=== PATIENT | female | born 1970 | race Caucasian/White ===

== ENCOUNTER → 2018-03-13 17:13 | Outpatient (CLI) | payer OTHER, SELFPAY ==
[2018-03-30 11:22] LABS: HPV Reflexed? NOT INDICATED
== END ==
PROVIDERS: Family Provider Internal Medicine; PCP Internal Medicine; Referring Provider Obstetrics & Gynecology; Visit Provider Obstetrics & Gynecology
DX: Z12.4 Encounter for screening for malignant neoplasm of cervix (principal)
CPT/HCPCS: 88175; G0145

== ENCOUNTER → 2018-03-16 10:28 | Outpatient (CLI) | payer OTHER, SELFPAY ==
--- NOTE | 2018-03-16 10:32 | BI_ITS ---
MAMMOGRAPHY - BILATERAL SCREENING REASON FOR EXAM: Female, 47 years old. Routine annual screening examination. PERTINENT HISTORY: Grandmother with breast cancer. TECHNIQUE: Digital bilateral breast amy (3D mammographic acquisition) in the CC and MLO projections. 2-D mediolateral oblique (MLO) and craniocaudad (CC) views of both breasts were obtained. CAD: Full Field Digital Mammography with Computer Added Detection was performed. COMPARISON: Comparison is made with prior study dated March 07, 2017 and August 11, 2015. FINDINGS: Breast Composition: The breasts are heterogeneously dense, which may obscure small masses. There are no dominant masses or suspicious calcifications. Once again, there is a 1.2 cm x 1 cm well-defined nodule in the upper lateral aspect of the right breast. This is unchanged. This was demonstrated to be a cyst on prior sonogram dated June 08, 2013. No other significant abnormalities are identified. There has been no significant change since the prior study. BI/SCREENING MAMM (CAD), BILAT IMPRESSION: Stable bilateral screening mammogram. Yearly follow-up mammogram recommended. (A) ASSESSMENT CATEGORY: BIRADS Category 2: Benign. A letter regarding these results will be sent to the patient by the facility within 30 days. Approximately 10% of breast cancers are not detected by mammography. A normal mammogram should not delay biopsy of a clinically suspicious abnormality. [id number] Electronically Signed: Luiz Skinner MD at 13:56 EST Tel [phone], Service support ,
== END ==
PROVIDERS: Family Provider Internal Medicine; PCP Internal Medicine; Visit Provider Obstetrics & Gynecology
DX: Z12.31 Encounter for screening mammogram for malignant neoplasm of breast (principal)
CPT/HCPCS: 77063; 77067

== ENCOUNTER → 2018-05-01 15:45 | Outpatient (CLI) | payer OTHER, SELFPAY ==
--- NOTE | 2018-05-01 11:30 | COLBX_PTH ---
PATIENT: KM SEBASTIAN LOC: [facility] U#:[id number] AGE/SX: 54/F ROOM: RE05/01/[address]: Dr. Cedrick Olivarez MD : 1970 BED: DIS: SPEC #: [id number] RECD: 05/01/18 15:31 STATUS: BOLIVAR GWENDOLYN #: [id number] APOLINAR: 05/01/18 11:[address]: Cedrick Olivarez DEPT: SURGICAL PATHOLOGY RECD BY: Oscar Wolf ENTERED: 05/04/18 08:03 SP TYPE: COLON BX OT DR: Dr. Lady Brenner, [facility] Tissues: COLON BIOPSY Procedures: Surgery Specimen Level IV HEADER OPERATION: Colonoscopy with biopsy PRE-OP DIAGNOSIS: Chronic diarrhea TISSUE SUBMITTED: Right and left colon biopsy, rule out microscopic colitis MICROSCOPIC DIAGNOSIS Right and left colon, biopsy: Fragments of colonic mucosa, no pathologic diagnosis. SJ:della 2/19/19 MICROSCOPIC DESCRIPTION Slides are reviewed. GROSS DESCRIPTION Received in fixative is one container labeled with the patient's name and designated right and left colon. The specimen consists of multiple irregular fragments of light milner soft tissue that in aggregate measure 2 x 0.5 x 0.1 cm. The specimen is totally submitted in one cassette. / SJ:rg 05/04/18 TC:4 CPT: 13779
== END ==
PROVIDERS: Family Provider Internal Medicine; PCP Internal Medicine; Referring Provider Internal Medicine Gastroenterology; Visit Provider Internal Medicine Gastroenterology
DX: R19.7 Diarrhea, unspecified (principal)
CPT/HCPCS: 88305

== ENCOUNTER 2019-04-26 09:09 | Emergency (ER) | payer OTHER, SELFPAY ==
[2019-04-26 09:10] VITALS: BP 200/110; PULSE 86; RESP 17; TEMP 36.4; O2SAT 100; BMI 35.0
--- NOTE | 2019-04-26 09:38 | CT_ITS ---
STUDY: CT ABDOMEN AND PELVIS WITH CONTRAST REASON FOR EXAM: Female, 48 years old. ABD PAIN/VOMITING RADIATION DOSAGE (If Supplied By Facility): CTDIvol = ( 15.85 ) mGy, DLP = ( 1118.63 ) mGycm TECHNIQUE: Transaxial images were obtained from the dome of the diaphragm to the symphysis pubis without oral contrast. Oral and amp; IV Gastrografin and amp; 100mL Isovue-300 was administered. Sagittal and coronal images were reconstructed. Individualized dose optimization techniques were used for this CT. COMPARISON: None. FINDINGS: The visualized lung bases are unremarkable. The visualized portions of the heart are within normal limits. There is decreased attenuation of the liver consistent with steatosis. The patient is status post cholecystectomy. Normal spleen. Normal pancreas. Normal bilateral adrenal glands. Normal right kidney. Normal left kidney. There is a small hiatal hernia. Normal small intestine. There are scattered colonic diverticula consistent with diverticulosis. The appendix is visualized and appears normal. Normal abdominal aorta. Normal inferior vena cava. There is borderline retroperitoneal lymphadenopathy with enlarged nodes no greater than 10mm in the short axis diameter. Normal urinary bladder. There is a 3.1 cm x 2.3 cm left ovarian cyst. Small follicles are seen in the right ovary. Normal abdominal wall. Normal osseous structures. CT/Abdomen/Pelvis WITH Contrast IMPRESSION: Left ovarian cyst. Diffuse fatty infiltration of the liver. Electronically Signed: Luiz Skinner, at 12:42 EST , Service support ,
--- NOTE | 2019-04-26 09:40 | ED.DCSUM_ITS ---
- ER Visit Summary Date of Service: 04/26/19 Chief Complaint: Vomiting History of Present Illness: The patient is a 48 F presenting with vomiting. She states this started 1.5 hours prior to arrival. She states she has vomited several times. She denies blood in her emesis. Denies diarrhea or constipation . She has diffuse abdominal pain worst in the left lower quadrant. She denies fever. Denies chest pain or shortness of breath. Denies bad food exposure, recent antibiotics, or travel. Denies sick contacts. Physical Examination: Vitals are stable. Patient is afebrile. Alert no acute distress. HEENT exam is unremarkable. Neck is supple. Lungs are clear and equal bilaterally. Heart is regular rate and rhythm. Abdomen is soft left lower quadrant tenderness with no guarding or rebound Extremities are unremarkable. Skin is warm and dry. Remainder of exam is unremarkable. Emergency Department Course and Treatment: Patient was given IV fluids, morphine, Zofran. CBC, chemistries unremarkable. ALT 71, lipase 135. Patient continues to be nauseated and was given Phenergan IV. She complains of worsening pain and was given Dilaudid IV. CT abdomen pelvis was obtained and shows Left ovarian cyst. Diffuse fatty infiltration of the liver. Pelvic ultrasound shows 3.1 cm x 2.65 x 1.9 cm left ovarian cyst. Flow is seen. On reevaluation, patient is resting comfortably. She is feeling improved. She is discharged with prescription for short course of [place] and Zofran. 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 Advised return to ED for worsening complaints. Disposition: Discharge home Impression: Left ovarian cyst This note was generated with B[employer]ul dictation software. It may contain incorrect words, spelling, and punctuation that were not noted in review of the chart prior to signing ED Disposition - Plan for ED Patient: Instructions: Ovarian Cyst Prescriptions: Hydrocodone Bitart/Apap 5-325 [[place] 5MG-325MG] 1 tab PO Q6H PRN PRN 3 Days #10 tab PRN Reason: Pain Prescription Printed Ondansetron [Zofran Odt] 4 mg PO Q8H PRN PRN #10 tab PRN Reason: Nausea Prescription Printed Referrals: Christina Locke MD [STAFF PHYSICIAN] - Lady Brenner DO [Primary Care Provider] -
[2019-04-26 09:45] LABS: Absolute Lymphocyte Count 2.53 X10^3/uL (0.83-4.51); Absolute Neutrophil Count 7.2 X10^3/uL (2.0-7.7); Basophil# 0.04 X10^3/uL; Basophil% 0.4 % (0-1); Eosinophil# 0.06 X10^3/uL; Eosinophils% 0.6 % (0-5); Hematocrit 43.4 % (37-47); Hemoglobin 14.4 g/dL (12.0-15.0); Lymphocyte # 2.53 X10^3/ul (4.0); Mean Corp Hgb Conc 33.2 g/dL (32-36); Mean Corpuscular Hgb 30.3 pg (27.0-32.0); Mean Corpuscular Volume 91.2 fL (81-99); Monocyte# 0.62 X10^3/uL; Monocyte% 5.9 % (0-10); NRBC Flagged by Analyzer 0 % (0-5); Neutrophil # 7.23 X10^3/uL (2.7-7.7); Neutrophil % 68.6 % (47-70); Platelet Count 271 K/mm3 (150-450); RBC Distribution Width CV 13.2 % (11.6-14.6); RBC Distribution Width SD 44.2 fl (35.1-43.9); Red Blood Count 4.76 M/mm3 (4.2-5.4); White Blood Count 10.5 K/mm3 (4.4-11.0)
[2019-04-26] MEDS: Ondansetron 4 MG/2 ML Vial IV (09:48)
[2019-04-26] MEDS: 0.9% Normal Saline 1,000 ML 1000 ML IV (09:48)
[2019-04-26] MEDS: Morphine 4 MG/ML Syringe IV (09:48)
[2019-04-26 10:02] LABS: ALB/GLOB Ratio 0.9 RATIO (0.9-2.4); AST(SGOT) 26 U/L (15-37); Alanine Aminotransfer ALT/SGPT 71 U/L (13-56); Albumin, Serum 4.1 g/dL (3.2-5.0); Alkaline Phosphatase 92 U/L (45-117); Anion Gap 7 (5-15); BUN 14 mg/dL (7-18); BUN/Creat Ratio 16.9 RATIO (10-20); Calcium,Total 9.8 mg/dL (8.5-10.1); Chloride 103 mmol/L (98-107); Creatinine, Serum 0.83 mg/dL (0.55-1.02); EST Glomerular Filtration Rate 78 mL/min (>60); Est Glom Filt Rate - Afr Amer 94 mL/min (>60); Estimated Creatinine Clearance 68.57 ml/min; Globulin 4.4 g/dL (2.2-4.2); Glucose 136 mg/dL (74-106); Lipase 135 U/L (73-393); Potassium 3.9 mmol/L (3.5-5.1); Protein, Total 8.5 g/dL (6.4-8.2); Sodium Level 134 mmol/L (136-145)
[2019-04-26] MEDS: proMETHazine 25 MG/ML Syringe 6.25 MG IV (10:09)
[2019-04-26 10:40] LABS: Mucous, Urine 0 SEEN /hpf (<or=2+); Red Blood Cells-Urine 0 SEEN /hpf (0-5); White Blood Cells 0 SEEN /hpf (0-5)
[2019-04-26 10:44] LABS: Color, Urine Yellow (Yellow); Glucose, Dipstick Normal (Normal); Ketone-Dipstick Negative (Negative); Leukocyte Esterase-Dipstick Negative /ul (Negative); Nitrite-Dipstick Negative (Negative); Occult Blood-Urine Negative /ul (Negative); Protein-Dipstick Negative (Negative); Specific Gravity, Urine 1.015 (1.002-1.030); Urine Bilirubin Dipstick Negative (Negative); Urine Clarity Sl. Cloudy (Clear); Urine Urobilinogen Normal (Normal)
[2019-04-26 10:50] LABS: Bacteria 1+ /hpf (None Seen); Squamous Epithelial Cells - UA 0-5 SEEN /hpf (5-10)
--- NOTE | 2019-04-26 11:06 | ED.RN ---
PATIENT CALLS OUT COMPLAINING OF WORSENING PAIN, DR. SULLIVAN MADE AWARE.
[2019-04-26] MEDS: HYDROmorphone 1 MG/ML Syringe IV (11:18)
--- NOTE | 2019-04-26 12:57 | US_ITS ---
STUDY: ULTRASOUND OF THE FEMALE PELVIS - COMPLETE REASON FOR EXAM: Female, 48 years old. PELVIC PAIN MOSTLY LEFT SIDED X 1 DAY -- PERIMENOPAUSAL LMP: TECHNIQUE: Transvaginal TECHNICAL QUALITY: Adequate. COMPARISON: Comparison is made with prior CT scan done earlier in the day. FINDINGS: The uterus is anteverted and is in a midline position. The uterus measures 8.4 cm x 5.8 cm x 4.2 cm. Normal uterine cervix. The endometrium measures 5.0 mm in thickness, and is hyperechoic. There is no demonstrated endometrial mass. There is heterogeneous appearance of the myometrium although no focal fibroid is seen. I.U.D. - The patient does not have an I.U.D. The right ovary is visualized. The right ovary measures 2.5 cm x 2.2 cm x 1.7 cm. There is no right ovarian cyst or ovarian mass. There is no visualized right adnexal mass or complex lesion. There is normal arterial and normal venous vascularity. The left ovary is visualized. The left ovary measures 3.6 cm x 3.4 cm x 3.2 cm. There is a 3.1 cm x 2.6 x 1.9 cm cyst. There is no visualized left adnexal mass or complex lesion. There is normal arterial and normal venous vascularity. There is no fluid in the cul-de-sac. Polycystic ovary disease: No. US/Transvaginal Non- IMPRESSION: 3.1 cm x 2.65 x 1.9 cm left ovarian cyst. Flow is seen. Electronically Signed: Luiz Skinner, at 14:30 EST , Service support ,
[2019-04-26 14:51] VITALS: BP 118/67; PULSE 82; RESP 17; O2SAT 94
--- NOTE | 2019-04-26 14:56 | DCINST.ED_ITS ---
ED Disposition - Plan for ED Patient: Instructions: Ovarian Cyst Prescriptions: Hydrocodone Bitart/Apap 5-325 [[place] 5MG-325MG] 1 tablet PO Q6H PRN PRN 3 Days #10 tablet PRN Reason: Pain Ondansetron [Zofran Odt] 4 mg PO Q8H PRN PRN #10 tablet PRN Reason: Nausea Referrals: Lady Brenner DO [Primary Care Provider] - Christina Locke MD [STAFF PHYSICIAN] -
[2019-04-26 15:34] VITALS: BP 108/64; PULSE 75; RESP 16; O2SAT 97
== END 2019-04-26 15:50 | disposition home or self-care (01) ==
LOC: ED 10:17
PROVIDERS: Emergency Provider Emergency Medicine; PCP Internal Medicine
DX: N83.202 Unspecified ovarian cyst, left side (principal); K76.0 Fatty (change of) liver, not elsewhere classified; Z90.49 Acquired absence of other specified parts of digestive tract; F31.9 Bipolar disorder, unspecified
CPT/HCPCS: 74177; 76830; 80053; 81001; 83690; 85025; 96361; 96374; 96375; 99283; Q9967; A4216; J2405

== ENCOUNTER → 2019-05-03 15:04 | Outpatient (CLI) | payer OTHER, SELFPAY ==
[2019-04-26 09:10] VITALS: BMI 35.0
--- NOTE | 2019-05-03 15:06 | BI_ITS ---
MAMMOGRAPHY - BILATERAL SCREENING REASON FOR EXAM: Female, 48 years old. Routine annual screening examination. PERTINENT HISTORY: Grandmother with breast cancer. TECHNIQUE: Digital bilateral breast isabela (3D mammographic acquisition) in the CC and MLO projections. 2-D mediolateral oblique (MLO) and craniocaudad (CC) views of both breasts were obtained. CAD: Full Field Digital Mammography with Computer Added Detection was performed. COMPARISON: Comparison is made with prior examination dated March 16, 2018 and March 07, 2017. FINDINGS: Breast Composition: The breasts are heterogeneously dense, which may obscure small masses. There are no dominant masses or suspicious calcifications. The previously seen nodular density in the upper lateral aspect of the right breast has resolved. No other significant abnormalities are identified. BI/SCREEN MAMM (CAD) W/ISABELA BILAT IMPRESSION: Stable bilateral screening mammogram. Yearly follow-up mammogram recommended. (A) ASSESSMENT CATEGORY: BIRADS Category 2: Benign. A letter regarding these results will be sent to the patient by the facility within 30 days. Approximately 10% of breast cancers are not detected by mammography. A normal mammogram should not delay biopsy of a clinically suspicious abnormality. [id number] Electronically Signed: Luiz Skinner, at 8:19 EST , Service support ,
== END ==
PROVIDERS: Family Provider Internal Medicine; PCP Internal Medicine; Referring Provider Obstetrics & Gynecology; Visit Provider Obstetrics & Gynecology
DX: Z12.31 Encounter for screening mammogram for malignant neoplasm of breast (principal)
CPT/HCPCS: 77063; 77067

== ENCOUNTER → 2019-12-06 16:55 | Outpatient (CLI) | payer OTHER, SELFPAY | PROVIDERS: PCP Internal Medicine; Visit Provider Obstetrics & Gynecology | DX: N39.0 Urinary tract infection, site not specified (principal); M54.9 Dorsalgia, unspecified | CPT/HCPCS: 87077; 87086; 87088 ==

== ENCOUNTER → 2020-01-04 10:03 | Outpatient (CLI) | payer OTHER, SELFPAY ==
--- NOTE | 2020-01-04 10:15 | RAD_ITS ---
STUDY: X-RAY - ESOPHAGUS (BARIUM SWALLOW) WITH FLUOROSCOPY REASON FOR EXAM: Female, 49 years old. Choking sensation, vomiting, x 3 weeks, TECHNIQUE: 50 view(s) of the esophagus were obtained following swallowing of barium. FLUOROSCOPY TIME (if supplied): (0:25) minutes/seconds COMPARISON: None. FINDINGS: There is no demonstrated esophageal foreign body. There is no demonstrated stricture or mucosal abnormality. Normal gastroesophageal junction, without a demonstrated hiatal hernia. The patient ingested a 12 mm tablet of barium without any difficulty. Normal visualized aortic arch and descending thoracic aorta. Normal visualized pulmonary parenchyma. Normal visualized osseous structures of the thorax. RAD/Esophagus Dual Contrast IMPRESSION: Normal plain film x-ray examination (barium swallow) of the esophagus. Electronically Signed: Luiz Skinner, at 15:19 EDT , Service support ,
== END ==
PROVIDERS: PCP Internal Medicine; Referring Provider Internal Medicine Gastroenterology; Visit Provider Internal Medicine Gastroenterology
DX: R13.10 Dysphagia, unspecified (principal)
CPT/HCPCS: 74221

== ENCOUNTER → 2020-04-21 14:39 | Outpatient (CLI) | payer OTHER, SELFPAY | PROVIDERS: PCP Internal Medicine; Referring Provider Otolaryngology Otolaryngology/Facial Plastic Surgery; Visit Provider Otolaryngology Otolaryngology/Facial Plastic Surgery | DX: U07.1 COVID-19 (principal) | CPT/HCPCS: 87635; C9803; U0005; U0003 ==

== ENCOUNTER → 2020-06-20 14:00 | Outpatient (CLI) | payer OTHER, SELFPAY ==
--- NOTE | 2020-06-20 14:03 | BI_ITS ---
MAMMOGRAPHY - BILATERAL SCREENING 3-D TOMOSYNTHESIS REASON FOR EXAM: Female, 49 years old. SCREENING PERTINENT HISTORY: Grandmother with breast cancer.. TECHNIQUE: 2-D mammograms and 3-D Tomosynthesis of the breast (s) were performed. CAD was performed. COMPARISON: 05/03/19 FINDINGS: The breast composition is heterogeneously dense that can obscure small breast masses. Scattered benign calcifications are seen. No dense spiculated masses or suspicious microcalcifications are identified. No architectural distortion is identified. There is no skin thickening or retraction. There has been no significant change since the prior study. BI/SCRN MAMM (CAD)W/ISABELA BILAT IMPRESSION: No mammographic signs of malignancy. Routine yearly mammograms recommended. ASSESSMENT CATEGORY: BIRADS Category 2: Benign. A letter regarding these results will be sent to the patient by the facility within 30 days. FOLLOW UP RECOMMENDATION: Yearly follow up mammogram recommended. (A) Approximately 10% of breast cancers are not detected by mammography. A normal mammogram should not delay biopsy of a clinically suspicious abnormality. Electronically Signed: Logan Agustin MD at 14:53 EDT , Service support ,
== END ==
PROVIDERS: PCP Internal Medicine; Referring Provider Student in an Organized Health Care Education/Training Program; Visit Provider Student in an Organized Health Care Education/Training Program
DX: Z12.31 Encounter for screening mammogram for malignant neoplasm of breast (principal)
CPT/HCPCS: 77063; 77067

== ENCOUNTER 2021-01-06 15:33 | Emergency (ER) | payer OTHER, SELFPAY ==
[2021-01-06 15:33] VITALS: BP 169/102; PULSE 92; RESP 24; TEMP 37.1; O2SAT 100; BMI 34.7
[2021-01-06 15:58] LABS: Absolute Lymphocyte Count 3.93 X10^3/uL (0.83-4.51); Absolute Neutrophil Count 6.1 X10^3/uL (2.0-7.7); Basophil# 0.04 X10^3/uL; Basophil% 0.4 % (0-1); Eosinophil# 0.14 X10^3/uL; Eosinophils% 1.3 % (0-5); Hematocrit 41.9 % (37-47); Lymphocyte # 3.93 X10^3/ul (0.83-4.51); Mean Corp Hgb Conc 33.4 g/dL (32-36); Mean Corpuscular Hgb 30.6 pg (27.0-32.0); Mean Corpuscular Volume 91.7 fL (81-99); Mean Platelet Vol. 9.1 fl (6.2-12.0); Monocyte# 0.74 X10^3/uL; Monocyte% 6.8 % (0-10); NRBC Flagged by Analyzer 0 % (0-5); Neutrophil # 6.05 X10^3/uL (2.7-7.7); Neutrophil % 55.2 % (47-70); Platelet Count 354 K/mm3 (150-450); RBC Distribution Width CV 12.9 % (11.6-14.6); RBC Distribution Width SD 43.7 fl (35.1-43.9); Red Blood Count 4.57 M/mm3 (4.2-5.4); White Blood Count 10.9 K/mm3 (4.4-11.0)
[2021-01-06 16:06] VITALS: PULSE 81; RESP 18; O2SAT 95
[2021-01-06 16:12] LABS: Anion Gap 9 (5-15); BUN 15 mg/dL (7-18); BUN/Creat Ratio 17.6 RATIO (10-20); Calcium,Total 9.6 mg/dL (8.5-10.1); Chloride 105 mmol/L (98-107); Creatinine, Serum 0.85 mg/dL (0.55-1.02); EST Glomerular Filtration Rate 75 mL/min (>60); Est Glom Filt Rate - Afr Amer 91 mL/min (>60); Estimated Creatinine Clearance 62.62 ml/min; Glucose 109 mg/dL (74-106); Potassium 3.6 mmol/L (3.5-5.1); Sodium Level 141 mmol/L (136-145)
[2021-01-06 16:21] LABS: Internal QC Validated? YES +Cl - CLEAR BKGD; Pregnancy, Serum, hCG Quali. NEGATIVE Negative
[2021-01-06 16:37] LABS: Mucous, Urine 0 SEEN /hpf (<or=2+); Red Blood Cells-Urine 0 SEEN /hpf (0-5)
[2021-01-06 16:41] LABS: Color, Urine Yellow (Yellow); Glucose, Dipstick Normal (Normal); Ketone-Dipstick 5 mg/dl (Negative); Leukocyte Esterase-Dipstick 25 /ul (Negative); Nitrite-Dipstick Negative (Negative); Occult Blood-Urine Negative /ul (Negative); Protein-Dipstick 15 mg/dl (Negative); Specific Gravity, Urine 1.015 (1.002-1.030); Urine Bilirubin Dipstick Negative (Negative); Urine Clarity Clear (Clear); Urine Urobilinogen Normal (Normal); Urine pH 6.5 (5.0 - 8.0)
[2021-01-06] MEDS: 0.9% Normal Saline 1,000 ML 1000 ML IV (16:46)
[2021-01-06] MEDS: Ondansetron 4 MG/2 ML Vial IV (16:47)
[2021-01-06 16:49] LABS: Bacteria RARE /hpf (None Seen); Squamous Epithelial Cells - UA 0-5 SEEN /hpf (5-10); White Blood Cells 0-5 SEEN /hpf (0-5)
--- NOTE | 2021-01-06 18:29 | EDS_ITS ---
HPI HPI - GI History of Present Illness Chief Complaint: Nausea/Vomiting Informant: patient Abdominal Pain/Flank Pain Onset: Hours Context: Sudden Onset Timing: Intermittent and Waxes and wanes Quality: Cramping Location: Diffuse Current Severity: Mild Maximum Severity: Moderate Worsened by: Not Worsened By Car ride, Food and Movement Relieved by: Not Relieved By Antacids, Food and Nothing Nausea/Vomiting/Emesis GI Symptom: Positive for Nausea, Vomiting and - (Patient reports vomiting 15 times since onset) Onset: Hours Diarrhea/Melena/Hematochezia GI Symptom: Positive for Diarrhea; Negative for Melena and Hematochezia Onset: Hours Stool Quality: Positive for Loose, Watery and Mucous Severity: Moderate Episodes: 5 Narrative Narrative: Patient is a middle-age woman who presents with abdominal cramping pain vomiting diarrhea that started today. No ill contacts. No Covid-like symptoms. No viral upper respiratory symptoms. She does have history of depression. She denies fever, chills night sweats. She denies dysuria, frequency, urgency or hematuria. She does report dry mouth and thirst. She does endorse lightheadedness with standing. She has no other complaints. Prior similar symptoms: No Recent Illness/Hospitalization: No PFSH PFSH Medical History Depression Home Medications bupropion HCl 150 mg PO DAILY 05/09/14 [History Last Taken 04/25/19] venlafaxine 75 mg PO DAILY 05/09/14 [History Last Taken 04/25/19] ondansetron 4 mg PO Q8H PRN PRN #10 tab 04/26/19 [Rx Last Taken Unknown] aripiprazole [Abilify] 5 mg PO DAILY 01/06/21 [History Last Taken Unknown] Allergy/AdvReac Type Severity Reaction Status Date / Time atropine sulfate Allergy Unknown Verified 01/06/21 16:04 [From ] hyoscyamine sulfate Allergy Unknown Verified 01/06/21 16:04 [From ] phenobarbital [From ] Allergy Unknown Verified 01/06/21 16:04 scopolamine hydrobromide Allergy Unknown Verified 01/06/21 16:04 [From ] Sulfa (Sulfonamide Allergy Anaphylaxis Verified 01/06/21 16:04 Antibiotics) ACROMYACIN Allergy Unknown Uncoded 01/06/21 16:04 Social History (Updated 01/06/21 @ 18:[address] Kendrick Arvizu MD) household members: none Smoking Status: Never smoker alcohol intake: current alcohol intake frequency: other substance use type: does not use ROS ROS ED Constitutional Constitutional ED: Denies chills, fever(s), subjective, sweats or weight loss ENT ENT ED: Denies ear pain, rhinorrhea or sore throat Cardiovascular Cardiovascular: Denies chest pain, orthopnea, palpitations or racing heartbeat Respiratory/Chest Respiratory/Chest: Denies cough, dyspnea, dyspnea on exertion, orthopnea or sputum Gastrointestinal Gastrointestinal: Reports abdominal pain, diarrhea, nausea and vomiting; Denies constipation or melena Genitourinary Genitourinary ED: Denies dysuria, hematuria or urinary frequency Musculoskeletal Musculoskeletal: Denies arthralgias, back pain, myalgias or neck pain Integumentary Denies rash Neurologic Neurologic: Reports weakness; Denies headache(s) or paresthesias Psychiatric Psychiatric: Reports depression Endocrine Endocrinology: Denies polydipsia, polyphagia or polyuria Hematologic/Lymphatic Hematologic/Lymphatic: Denies easy bleeding or easy bruising EXAM Physical Exam Const Vital Signs: 01/06/21 15:33 01/06/21 16:06 Temperature 98.7 F Temperature Source Temporal Pulse Rate 92 81 Respiratory Rate 24 H 18 Blood Pressure 169/102 H Blood Pressure Mean 124 Pulse Ox 100 95 Oxygen Delivery Method Room Air Room Air Positive well nourished and well developed General Appearance ED: well developed and NAD HEENT Reports TM's clear and dry mucous membranes normocephalic and atraumatic Tympanic Membrane ED: Yes TM's clear Mouth ED: Yes dry mucous membranes Mouth: dry mucous membranes Eyes PERRL and EOMs intact bilaterally General Eye ED: Negative for pale conjunctiva or scleral icterus Neck no lymphadenopathy, supple and no JVD Resp normal respiratory effort and clear to auscultation bilaterally Cardio regular rate, regular rhythm, S1 normal heart sound, S2 normal heart sound and no murmurs GI non-tender, non-distended and no masses Auscultation: hyperactive bowel sounds; Negative for normoactive bowel sounds Palpation: soft Back/Spine no CVA tenderness General Back: Negative for CVA tenderness Cervical Spine: Negative for cervical spine tenderness Thoracic Spine / Upper Back: Negative for thoracic spinal tenderness Lumbar Spine / Lower Back: Negative for lumbar spinal tenderness Extremity full ROM General Extremety ED: Negative for edema or tenderness General Extremity: Negative for edema Neuro moves all extremities Sensorium / Orientation: alert and oriented to person Psych mental status grossly normal Skin no wounds Lesions: no lesions Rashes: no rashes MDM MDM MDM Narrative Medical decision making narrative: Patient most likely has a viral illness. Will obtain basic metabolic panel to assess renal function and anion gap. CBC to assess white count and differential. Urine was assessed to rule out urinary tract infection and specific gravity. Urine is positive for ketones. This would go along with dehydration. Patient was treated with antiemetic and 1 L normal saline. She was reassessed at 1830. She feels markedly improved. Lab Data Attestation: I reviewed the patient's lab results. Labs: Laboratory Results - last 24 hr 01/06/21 01/06/21 01/06/21 15:50 15:50 15:50 WBC 10.9 RBC 4.57 Hgb 14.0 Hct 41.9 MCV 91.7 MCH 30.6 MCHC 33.4 RDW Std Deviation 43.7 RDW Coeff of Trae 12.9 Plt Count 354 MPV 9.1 Immature Gran % (Auto) 0.300 Neut % (Auto) 55.2 Lymph % (Auto) 36.0 [place] % (Auto) 6.8 Eos % (Auto) 1.3 Baso % (Auto) 0.4 Absolute Neuts (auto) 6.1 Absolute Lymphs (auto) 3.93 Nucleated RBC % 0 Sodium 141 Potassium 3.6 Chloride 105 Carbon Dioxide 27.0 Anion Gap 9 BUN 15 Creatinine 0.85 Estim Creat Clear Calc 62.62 Est GFR (MDRD) Af Amer 91 Est GFR (MDRD) Non-Af 75 BUN/Creatinine Ratio 17.6 Glucose 109 H Calcium 9.6 Serum , Qual NEGATIVE Urine Color Urine Clarity Urine pH Ur Specific Shiner Urine Protein Urine Glucose (UA) Urine Ketones Urine Occult Blood Urine Nitrite Urine Bilirubin Urine Urobilinogen Ur Leukocyte Esterase Urine RBC Urine WBC Ur Squamous Epith Cells Urine Bacteria Urine Mucus 01/06/21 16:28 WBC RBC Hgb Hct MCV MCH MCHC RDW Std Deviation RDW Coeff of Trae Plt Count MPV Immature Gran % (Auto) Neut % (Auto) Lymph % (Auto) [place] % (Auto) Eos % (Auto) Baso % (Auto) Absolute Neuts (auto) Absolute Lymphs (auto) Nucleated RBC % Sodium Potassium Chloride Carbon Dioxide Anion Gap BUN Creatinine Estim Creat Clear Calc Est GFR (MDRD) Af Amer Est GFR (MDRD) Non-Af BUN/Creatinine Ratio Glucose Calcium Serum , Qual Urine Color Yellow Urine Clarity Clear Urine pH 6.5 Ur Specific Shiner 1.015 Urine Protein 15 H Urine Glucose (UA) Normal Urine Ketones 5 H Urine Occult Blood Negative Urine Nitrite Negative Urine Bilirubin Negative Urine Urobilinogen Normal Ur Leukocyte Esterase 25 H Urine RBC 0 SEEN Urine WBC 0-5 SEEN Ur Squamous Epith Cells 0-5 SEEN Urine Bacteria RARE Urine Mucus 0 SEEN Discharge Plan Triage Chief Complaint: Nausea/Vomiting ED Provider: Kendrick Arvizu Dx/Rx/DC Orders Clinical Impression: Nausea vomiting and diarrhea, Moderate dehydration, Ketosis Instructions: ED Vomiting and Diarrhea ... Prescriptions: No Action venlafaxine 75 MG tablet 75 mg PO DAILY RF: 0 bupropion HCl 150 MG tablet extended release 24 hr 150 mg PO DAILY RF: 0 ondansetron 4 MG tablet 4 mg PO Q8H PRN PRN (Reason: Nausea) Qty: 10 RF: 0 aripiprazole [Abilify] 5 mg Tablet 5 mg PO DAILY RF: 0 Primary Care Provider: Lauren Beck Referrals: Lauren Beck, HEATING ELEMENT BUILDER-[employer] [Primary Care Provider] - 3-5 Days if not improving Disposition Disposition: Home, Self Care
[2021-01-06 18:57] VITALS: BP 138/75; PULSE 75; RESP 16
== END 2021-01-06 19:03 | disposition home or self-care (01) ==
PROVIDERS: Emergency Provider Emergency Medicine; PCP Nurse Practitioner Family
DX: R11.2 Nausea with vomiting, unspecified (principal); R19.7 Diarrhea, unspecified; E86.0 Dehydration; E88.89 Other specified metabolic disorders; F32.9 Major depressive disorder, single episode, unspecified; Z79.899 Other long term (current) drug therapy
CPT/HCPCS: 80048; 81001; 84703; 85025; 96361; 96374; 99283; J7030; J2405

== ENCOUNTER 2021-01-13 22:49 | Emergency (ER) | payer OTHER, SELFPAY ==
[2021-01-13 22:50] VITALS: BP 179/102; PULSE 83; RESP 15; TEMP 35.9; O2SAT 99; BMI 33.8
--- NOTE | 2021-01-13 23:18 | EX.ED.DYSGE1 ---
HPI History of Present Illness Chief Complaint: Nausea/Vomiting Detail of Chief Complaint: Vomiting Informant: patient Onset/Context/Timing Onset: Today Current Severity: Moderate Maximum Severity: Moderate Narrative Narrative: Patient presents secondary to nausea and vomiting since 3 PM this afternoon. Patient states she is unable to keep anything down including water. She denies fever or chills. She has some nauseous churning in her abdomen but no focal abdominal pain. Patient was seen in the ER 6 days ago with similar. Work-up was unremarkable and she felt significantly improved after IV Zofran. Patient states she did well throughout the week with only some mild nausea. No sick contacts noted. [facility] Medical History Depression Home Medications bupropion HCl 150 mg PO DAILY 05/09/14 [History Last Taken 04/25/19] venlafaxine 75 mg PO DAILY 05/09/14 [History Last Taken 04/25/19] ondansetron 4 mg PO Q8H PRN PRN #10 tab 04/26/19 [Rx Last Taken Unknown] aripiprazole [Abilify] 5 mg PO DAILY 01/06/21 [History Last Taken Unknown] metoclopramide HCl [Reglan] 10 mg PO Q6H PRN #10 tab 01/14/21 [Rx Last Taken Unknown] ondansetron 4 mg PO Q8H PRN #10 tab 01/14/21 [Rx Last Taken Unknown] Allergy/AdvReac Type Severity Reaction Status Date / Time atropine sulfate Allergy Unknown Verified 01/13/21 22:52 [From ] hyoscyamine sulfate Allergy Unknown Verified 01/13/21 22:52 [From ] phenobarbital [From ] Allergy Unknown Verified 01/13/21 22:52 scopolamine hydrobromide Allergy Unknown Verified 01/13/21 22:52 [From ] Sulfa (Sulfonamide Allergy Anaphylaxis Verified 01/13/21 22:52 Antibiotics) ACROMYACIN Allergy Unknown Uncoded 01/13/21 22:52 Social History household members: none Smoking Status: Never smoker alcohol intake: current alcohol intake frequency: other substance use type: does not use ROS ROS ED Constitutional Constitutional ED: Denies chills or fever(s) Eyes Eyes: Denies change in vision ENT ENT ED: Denies sore throat Cardiovascular Cardiovascular: Denies chest pain Respiratory/Chest Respiratory/Chest: Denies cough or dyspnea Gastrointestinal Gastrointestinal: Reports nausea and vomiting; Denies abdominal pain or diarrhea Genitourinary Genitourinary ED: Denies dysuria Musculoskeletal Musculoskeletal: Denies back pain Neurologic Neurologic: Denies headache(s) Allergic/Immunologic Allergic/Immunologic ED: Denies urticaria EXAM Physical Exam Const Vital Signs: 01/13/21 22:50 Temperature 96.7 F L Temperature Source Temporal Pulse Rate 83 Respiratory Rate 15 Blood Pressure 179/102 H Blood Pressure Mean 127 Pulse Ox 99 Oxygen Delivery Method Room Air Positive well nourished and well developed General Appearance ED: well developed HEENT Reports normocephalic and head/scalp atraumatic Eyes PERRL and EOMs intact bilaterally Neck supple Chest Wall inspection of chest normal and palpation of chest normal Resp normal respiratory effort and clear to auscultation bilaterally Cardio regular rate and regular rhythm GI non-tender Auscultation: hypoactive bowel sounds Palpation: soft Extremity normal to inspection Neuro oriented x3 and no sensory deficits noted Sensorium / Orientation: alert Motor Exam: strength 5/5 throughout Psych mental status grossly normal Skin no rashes or lesions noted MDM MDM MDM Narrative Medical decision making narrative: Patient was given a liter IV fluid along with a dose of IV Zofran. BMP ordered. I did review the full work-up performed just a few days ago. Lab Data Labs: Laboratory Results - last 24 hr 01/13/21 23:32 Sodium 139 Potassium 4.0 Chloride 104 Carbon Dioxide 27.0 Anion Gap 8 BUN 16 Creatinine 0.86 Estim Creat Clear Calc 64.74 Est GFR (MDRD) Af Amer 90 Est GFR (MDRD) Non-Af 74 BUN/Creatinine Ratio 18.6 Glucose 128 H Calcium 9.5 Treatment and Re-Evaluation Comments:: Repeat evaluation patient still having nausea. She is given dose of Reglan and Benadryl. At this time patient reports significant improvement in her nausea. She will be given prescriptions for Zofran as well as Reglan. Return instructions provided. Discharge Plan Triage Chief Complaint: Nausea/Vomiting ED Provider: Rubi Mcconnell Dx/Rx/DC Orders Clinical Impression: Vomiting Instructions: ED Vomiting (Adult) Prescriptions: New ondansetron 4 mg tablet,disintegrating 4 mg PO Q8H PRN (Reason: nausea and vomiting) Qty: 10 RF: 0 metoclopramide HCl [Reglan] 10 mg tablet 10 mg PO Q6H PRN (Reason: nausea and vomiting) Qty: 10 RF: 0 No Action venlafaxine 75 MG tablet 75 mg PO DAILY RF: 0 bupropion HCl 150 MG tablet extended release 24 hr 150 mg PO DAILY RF: 0 ondansetron 4 MG tablet 4 mg PO Q8H PRN PRN (Reason: Nausea) Qty: 10 RF: 0 aripiprazole [Abilify] 5 mg Tablet 5 mg PO DAILY RF: 0 Primary Care Provider: Lauren Beck Referrals: Lauren Beck, TRANSPORTATION ASSOCIATE-C [Primary Care Provider] - 3-5 Days if not improving Disposition Disposition: Home, Self Care
[2021-01-13] MEDS: 0.9% Normal Saline 1,000 ML 1000 ML IV (23:33)
[2021-01-13] MEDS: Ondansetron 4 MG/2 ML Vial IV (23:43)
[2021-01-14 00:14] LABS: Anion Gap 8 (5-15); BUN 16 mg/dL (7-18); BUN/Creat Ratio 18.6 RATIO (10-20); Calcium,Total 9.5 mg/dL (8.5-10.1); Chloride 104 mmol/L (98-107); Creatinine, Serum 0.86 mg/dL (0.55-1.02); EST Glomerular Filtration Rate 74 mL/min (>60); Est Glom Filt Rate - Afr Amer 90 mL/min (>60); Estimated Creatinine Clearance 64.74 ml/min; Glucose 128 mg/dL (74-106); Sodium Level 139 mmol/L (136-145)
[2021-01-14] MEDS: DiphenhydrAMINE 50 MG/ML Syringe 12.5 MG IV (00:46)
[2021-01-14] MEDS: Metoclopramide 10 MG/2 ML Vial IV (00:46)
[2021-01-14 01:40] VITALS: BP 138/74; PULSE 68; RESP 15; O2SAT 96
== END 2021-01-14 01:42 | disposition home or self-care (01) ==
PROVIDERS: Emergency Provider Emergency Medicine; PCP Nurse Practitioner Family
DX: R11.2 Nausea with vomiting, unspecified (principal); F32.A Depression, unspecified
CPT/HCPCS: 80048; 96361; 96374; 96375; 99283; J7030; A4216; J2405

== ENCOUNTER → 2021-02-07 16:30 | Outpatient (CLI) | payer OTHER, SELFPAY | PROVIDERS: PCP Nurse Practitioner Family; Visit Provider Otolaryngology | DX: Z11.59 Encounter for screening for other viral diseases (principal); Z03.818 Encounter for observation for suspected exposure to other biological agents ruled out | CPT/HCPCS: 87635; U0005; U0003 ==

== ENCOUNTER 2021-03-29 01:36 | Emergency (ER) | payer OTHER, SELFPAY ==
[2021-03-29 01:37] VITALS: BP 156/94; PULSE 78; RESP 16; TEMP 35.8; O2SAT 97; BMI 34.9
--- NOTE | 2021-03-29 01:46 | EDS_ITS ---
HPI HPI - Psych History of Present Illness Chief Complaint: Mental Health Detail of Chief Complaint: Depression and suicidal ideation Informant: patient Narrative Narrative: To the emergency department complaint of feeling depressed and feeling suicidal. Patient states that she has been feeling this way for about a month and a half. She has longstanding history of depression. Patient states that she gets anxious at night because she does not think she will be able to sleep. Tonight she had thoughts of slicing her wrist with a knife and began to do so but then got scared. Patient denies recent illness. She denies auditory or visual hallucinations. She denies homicidal ideation. Prior similar symptoms: Yes [facility] Medical History (Updated 03/29/21 @ 03:[address] Avelino Weiner, DO) Depression Home Medications venlafaxine 75 mg PO DAILY 05/09/14 [History Last Taken 04/25/19] acidophilus-pectin, citrus 1 tab PO DAILY 03/29/21 [History Last Taken Unknown] ergocalciferol (vitamin D2) [Vitamin D2] 1,000 unit PO BID 03/29/21 [History Last Taken Unknown] lamotrigine 25 mg PO DAILY 03/29/21 [History Last Taken Unknown] lurasidone [Latuda] 40 mg PO DINNER 03/29/21 [History Last Taken Unknown] Allergy/AdvReac Type Severity Reaction Status Date / Time atropine sulfate Allergy Unknown Verified 03/29/21 01:37 [From ] hyoscyamine sulfate Allergy Unknown Verified 03/29/21 01:37 [From ] phenobarbital [From ] Allergy Unknown Verified 03/29/21 01:37 scopolamine hydrobromide Allergy Unknown Verified 03/29/21 01:37 [From ] Sulfa (Sulfonamide Allergy Anaphylaxis Verified 03/29/21 01:37 Antibiotics) ACROMYACIN Allergy Unknown Uncoded 03/29/21 01:37 Surgical History (Updated 03/29/21 @ 01:42 by Maira Wallace) History of cholecystectomy Social History household members: none Smoking Status: Never smoker alcohol intake: current alcohol intake frequency: other substance use type: does not use ROS ROS ED Constitutional Constitutional ED: Reports systems reviewed and no addt'l complaints, except as documented; Denies body ache(s), change in weight or chills Eyes Eyes: Denies acute decrease in peripheral vision, change in vision, double vision or loss of vision ENT ENT ED: Reports none; Denies ear pain, lip swelling, loss taste/smell, neck pain, otalgia or sore throat Cardiovascular Cardiovascular: Reports none; Denies abdominal pain, chest pain with activity, leg edema, lightheadedness, palpitations, rapid heart rate or syncope Respiratory/Chest Respiratory/Chest: Reports none; Denies change in mental status, dry cough, dyspnea, hemoptysis, shortness of breath at rest or shortness of breath with exertion Gastrointestinal Gastrointestinal: Reports none; Denies abdominal pain, change in stool character, diarrhea, hematemesis, hematochezia, melena, rectal bleeding or vomiting Genitourinary Genitourinary ED: Reports none; Denies abdominal discomfort, anuria, dysuria, genital pain or polyuria Musculoskeletal Musculoskeletal: Reports none; Denies arthralgias, back pain, difficulty walking, extremity pain, muscle weakness or myalgias Integumentary Reports none; Denies abscess or rash Neurologic Neurologic: Reports none; Denies abnormal gait, confusion, focal weakness, frequent falls, headache(s), loss of vision, numbness, paresthesias, radicular pain, vertigo or weakness Psychiatric Psychiatric: Reports systems reviewed and no addt'l complaints, except as documented, none, anxiety, depression, suicidal ideation and suicidal thoughts; Denies behavioral changes, confusion, difficulty concentrating, hallucinations, tactile hallucinations or visual hallucinations Endocrine Endocrinology: Denies none, cold intolerance, excessive sweating, fatigue or heat intolerance Hematologic/Lymphatic Hematologic/Lymphatic: Reports none; Denies anemia, easy bleeding or easy bruising Allergic/Immunologic Allergic/Immunologic ED: Denies as per HPI, none, lip swelling, mouth swelling, throat swelling, tongue swelling or hives EXAM Physical Exam Const Vital Signs: 03/29/21 01:37 03/29/21 02:54 03/29/21 03:39 Temperature 96.4 F L Temperature Source Temporal Pulse Rate 78 Respiratory Rate 16 16 16 Blood Pressure 156/94 H Blood Pressure Mean 114 Pulse Ox 97 Oxygen Delivery Method Room Air Positive well nourished and well developed General Appearance ED: well developed and NAD HEENT Reports TM's clear and moist mucous membranes normocephalic and atraumatic; Negative for trauma or tenderness Tympanic Membrane ED: Yes TM's clear Eyes PERRL and EOMs intact bilaterally General Eye ED: Negative for pale conjunctiva or scleral icterus Neck no lymphadenopathy, supple and no JVD General: Negative for tenderness Chest Wall inspection of chest normal and palpation of chest normal Chest: Negative for tenderness Resp normal respiratory effort and clear to auscultation bilaterally Effort and Inspection: Negative for respiratory distress or pain with movement Auscultation: Negative for rhonchi, wheezes or diminished lung sounds Cardio regular rate, regular rhythm, S1 normal heart sound, S2 normal heart sound and no murmurs Peripheral Pulses: pulses 2+ throughout GI normal to inspection, nondistended, normoactive bowel sounds, soft to palpation, non-tender, non-distended and no masses Back/Spine no CVA tenderness and no thoracic nor lumbar tenderness Extremity Extremity Narrative: Evaluation of the right wrist reveals minimal very superficial abrasions to the volar aspect of the wrist. General Extremety ED: Negative for edema General Extremity: Negative for edema Neuro oriented x3, CN's II-XII intact bilaterally, no sensory deficits noted and gait normal Sensorium / Orientation: awake, alert, oriented to person, oriented to place and oriented to time Motor Exam: strength 5/5 throughout and strength abnormal Psych mental status grossly normal Skin no rashes or lesions noted and no wounds MDM MDM MDM Narrative Medical decision making narrative: Patient lab work-up unremarkable. Patient was evaluated by crisis and it was felt she would benefit from inpatient hospitalization. Awaiting placement to psychiatric facility. Patient medically cleared. Lab Data Attestation: I reviewed the patient's lab results. Labs: Laboratory Results - last 24 hr 03/29/21 03/29/21 03/29/21 01:54 01:54 01:54 WBC 8.9 RBC 4.33 Hgb 13.3 Hct 39.6 MCV 91.5 MCH 30.7 MCHC 33.6 RDW Std Deviation 41.8 RDW Coeff of Trae 12.5 Plt Count 218 MPV 10.0 Immature Gran % (Auto) 0.100 Neut % (Auto) 52.5 Lymph % (Auto) 37.3 Leslie % (Auto) 8.1 Eos % (Auto) 1.4 Baso % (Auto) 0.6 Absolute Neuts (auto) 4.7 Absolute Lymphs (auto) 3.31 Nucleated RBC % 0 Sodium 137 Potassium 3.6 Chloride 107 Carbon Dioxide 23.0 Anion Gap 7 BUN 10 Creatinine 0.71 Estim Creat Clear Calc 74.97 Est GFR (MDRD) Af Amer 112 Est GFR (MDRD) Non-Af 92 BUN/Creatinine Ratio 14.1 Glucose 126 H Calcium 9.5 Serum , Qual Urine Opiates Screen Urine Methadone Screen Ur Barbiturates Screen Ur Phencyclidine Scrn Ur Amphetamines Screen U Methamphetamin-MDMA U Benzodiazepines Scrn Urine Cocaine Screen U Cannabinoids Screen Ur Drug Screen Comment Ethyl Alcohol < 3.0 03/29/21 03/29/21 01:54 02:03 WBC RBC Hgb Hct MCV MCH MCHC RDW Std Deviation RDW Coeff of Trae Plt Count MPV Immature Gran % (Auto) Neut % (Auto) Lymph % (Auto) Leslie % (Auto) Eos % (Auto) Baso % (Auto) Absolute Neuts (auto) Absolute Lymphs (auto) Nucleated RBC % Sodium Potassium Chloride Carbon Dioxide Anion Gap BUN Creatinine Estim Creat Clear Calc Est GFR (MDRD) Af Amer Est GFR (MDRD) Non-Af BUN/Creatinine Ratio Glucose Calcium Serum , Qual NEGATIVE Urine Opiates Screen NEGATIVE Urine Methadone Screen NEGATIVE Ur Barbiturates Screen NEGATIVE Ur Phencyclidine Scrn NEGATIVE Ur Amphetamines Screen NEGATIVE U Methamphetamin-MDMA NEGATIVE U Benzodiazepines Scrn NEGATIVE Urine Cocaine Screen NEGATIVE U Cannabinoids Screen NEGATIVE Ur Drug Screen Comment Ethyl Alcohol Discharge Plan Triage Chief Complaint: Mental Health ED Provider: Avelino Weiner Dx/Rx/DC Orders Clinical Impression: Depression, Suicidal ideation Prescriptions: No Action venlafaxine 75 MG tablet 75 mg PO DAILY RF: 0 lamotrigine 25 mg tablet 25 mg PO DAILY RF: 0 Latuda 40 mg Tablet 40 mg PO DINNER RF: 0 Vitamin D2 1,000 unit Capsule 1,000 unit PO BID RF: 0 acidophilus-pectin, citrus 25 million cell -100 mg tablet 1 tab PO DAILY RF: 0 Primary Care Provider: Lauren Beck Referrals: Lauren Beck, OFFICE MACHINE SERVICER-C [Primary Care Provider] - Disposition Disposition: Psychiatric Hospital or Unit
[2021-03-29 02:05] LABS: Absolute Lymphocyte Count 3.31 X10^3/uL (0.83-4.51); Absolute Neutrophil Count 4.7 X10^3/uL (2.0-7.7); Basophil# 0.05 X10^3/uL; Basophil% 0.6 % (0-1); Eosinophil# 0.12 X10^3/uL; Eosinophils% 1.4 % (0-5); Hematocrit 39.6 % (37-47); Hemoglobin 13.3 g/dL (12.0-15.0); Lymphocyte # 3.31 X10^3/ul (0.83-4.51); Lymphocyte % 37.3 % (19-41); Mean Corp Hgb Conc 33.6 g/dL (32-36); Mean Corpuscular Hgb 30.7 pg (27.0-32.0); Mean Corpuscular Volume 91.5 fL (81-99); Monocyte# 0.72 X10^3/uL; Monocyte% 8.1 % (0-10); NRBC Flagged by Analyzer 0 % (0-5); Neutrophil # 4.66 X10^3/uL (2.7-7.7); Neutrophil % 52.5 % (47-70); Platelet Count 218 K/mm3 (150-450); RBC Distribution Width CV 12.5 % (11.6-14.6); RBC Distribution Width SD 41.8 fl (35.1-43.9); Red Blood Count 4.33 M/mm3 (4.2-5.4); White Blood Count 8.9 K/mm3 (4.4-11.0)
[2021-03-29 02:17] LABS: Internal QC Validated? YES +Cl - CLEAR BKGD; Pregnancy, Serum, hCG Quali. NEGATIVE Negative
[2021-03-29 02:22] LABS: Anion Gap 7 (5-15); BUN 10 mg/dL (7-18); BUN/Creat Ratio 14.1 RATIO (10-20); Calcium,Total 9.5 mg/dL (8.5-10.1); Chloride 107 mmol/L (98-107); Creatinine, Serum 0.71 mg/dL (0.55-1.02); EST Glomerular Filtration Rate 92 mL/min (>60); Est Glom Filt Rate - Afr Amer 112 mL/min (>60); Estimated Creatinine Clearance 74.97 ml/min; Glucose 126 mg/dL (74-106); Potassium 3.6 mmol/L (3.5-5.1); Sodium Level 137 mmol/L (136-145)
[2021-03-29 02:25] LABS: Alcohol, Blood (Medical)-Serum < 3.0 mg/dL
[2021-03-29 02:28] LABS: Amphetamine Urine VISTA NEGATIVE (<1000 ng/mL); Barbiturate Urine VISTA NEGATIVE (< 200 ng/mL); Benzodiazepine Urine VISTA NEGATIVE (< 200 ng/mL); Cocaine Urine VISTA NEGATIVE (< 300 ng/mL); Ecstacy Urine VISTA NEGATIVE (< 500 ng/mL); Methadone Urine VISTA NEGATIVE (< 300 ng/mL); PCP Urine VISTA NEGATIVE (< 25 ng/mL); THC Urine VISTA NEGATIVE (< 50 ng/mL); Vista UDS pH Range 5
--- NOTE | 2021-03-29 02:38 | ED.RN ---
CALLED CRISIS AND FAXED OVER PAPERWORK
[2021-03-29 02:54] VITALS: RESP 16
[2021-03-29 03:39] VITALS: RESP 16
[2021-03-29 04:30] VITALS: RESP 16
--- NOTE | 2021-03-29 04:38 | ED.RN ---
PATIENT HAS BEEN REFERRED TO [facility]
[2021-03-29 05:23] VITALS: RESP 16
[2021-03-29] MEDS: LORazepam 1 MG Tablet PO (06:02)
[2021-03-29 06:48] VITALS: BP 118/71; PULSE 65; RESP 18; TEMP 36; O2SAT 95
== END 2021-03-29 07:20 ==
PROVIDERS: Emergency Provider Emergency Medicine; PCP Nurse Practitioner Family; Visit Provider Emergency Medicine
DX: F32.A Depression, unspecified (principal); R45.851 Suicidal ideations; Z79.899 Other long term (current) drug therapy
CPT/HCPCS: 80048; 80307; 82077; 84703; 85025; 87426; 99285